=== PATIENT | male | born 1945 | race Caucasian/White ===

== ENCOUNTER 2020-10-16 10:28 | Emergency (ER) | payer MEDICARE, SELFPAY ==
--- NOTE | ~2020-10-16 | XR_ITS ---
XR hand RT min 3V 10/16/2020 11:24 Indication: Right hand pain Procedure: 3 views right hand Comparison: No prior studies for comparison. Findings: There is a comminuted intra-articular fracture of the fifth proximal phalanx involving the MCP joint. Mild soft tissue swelling. 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 Impression: 1: Mildly displaced, comminuted, intra-articular fracture base of the right fifth proximal phalanx. Reviewed, dictated and finalized at location A. Impression: 1: Mildly displaced, comminuted, intra-articular fracture base of the right fif th proximal phalanx.
--- NOTE | 2020-10-16 10:51 | ED.UPPEXIN ---
HPI - Extremity Injury (Upper) General Chief Complaint: Extremity Injury, Upper Stated Complaint: injured fingers Time Seen by Provider: 10/16/20 11:20 Source: patient and RN notes reviewed Mode of arrival: ambulatory Limitations: no limitations History of Present Illness HPI narrative: 74-year-old male presents with concern for injury to the fifth digit of his right hand. Reports 1 week ago while playing softball he was catching the ball and it jammed his finger. He reports for several days he wore a splint. He reports bruising, pain at the proximal digit. He denies decreased sensation, strength. Reports decreased range of motion. MD complaint: injury to: right and finger Related Data Home Medications Medication Instructions Recorded Confirmed multivitamin 1 tablet PO DAILY 02/22/19 10/16/20 omega-3 fatty acids 1,000 mg 1,000 mg PO DAILY 02/22/19 10/16/20 capsule insulin aspar prot-insulin aspart See Rx Instructions .ROUTE 05/18/20 10/16/20 100 unit/mL (70-30) subcutaneous .COMPLEX ml pen Allergies Allergy/AdvReac Type Severity Reaction Status Date / Time No Known Allergies Allergy Verified 10/16/20 10:50 Review of Systems Review of Systems: Narrative: CONSTITUTIONAL: Denies malaise, chills, sweats, or fever. SKIN: Denies lacerations, abrasions MUSCULOSKELETAL: Reports pain, swelling, bruising to the fifth digit of the right hand NEUROLOGIC: Denies numbness, weakness All systems reviewed & are unremarkable except as noted in HPI and below PMFSH Past Medical History Medical History (Updated 10/16/20 @ 12:56 by Mercy Wade NP) Cataract right 08/04/16, left 01/05/17 Essential (primary) hypertension Hernia 1985 History of rectal cancer Hypercalcemia Hyperlipidemia, unspecified Hypothyroidism, unspecified Type 2 diabetes mellitus Vitamin D deficiency Surgical History Surgical History History of abdominal surgery per pt, JUNJuly 2008 History of partial knee replacement Feb 2014 Family History Family History Mother Hypertension Cerebrovascular accident Father Cerebrovascular accident Social History Social History Second hand tobacco smoke exposure: No Alcohol intake: current Alcohol use details: on occasion Comments At time of signature, agree with nursing past medical, surgical, social and family history. There is no relevant family history pertinent to the presenting complaint Exam Narrative: Exam Narrative: GENERAL: Well-appearing, well-nourished, and in no acute distress. HEAD: Normocephalic EYES: PERRLA, conjunctivae clear NECK: Supple. CHEST: Speaks in full sentences. No respiratory distress. HEART: Regular rate and rhythm. Normal and equal peripheral pulses. EXTREMITIES: Fifth digit of the right hand has normal strength and sensation. Range of motion limited due to swelling and pain. Moderate proximal ecchymosis and edema noted. Proximal tenderness. Skin intact. Normal digital cascade with flexion of fingers, median, ulnar and radial nerve intact. Normal sensation of each side of finger. No scissoring. Normal thumb opposition. Good capillary refill and radial pulse. Distal capillary refill less than 3 seconds. SKIN: Warn, dry, intact, pink. No rash NEURO: Alert and oriented x3. PSYCH: Normal mood and affect Course Course Emergency Course: Patient is aware of diagnosis, understands and agrees to treatment plan. Anticipatory guidance given. Patient agrees to follow-up as directed and is aware of reasons to seek care at the emergency department. Portions of this record may have been created with voice recognition software Vital Signs Vital signs: Vital Signs Temperature 97.4 F L 10/16/20 10:53 Pulse Rate 85 10/16/20 10:53 Respiratory Rate 16 10/16/20 10:53 Blood Pressure
[2020-10-16 10:53] VITALS: BP 150/72; PULSE 85; RESP 16; TEMP 36.3; O2SAT 97
== END 2020-10-16 12:05 | disposition home or self-care (01) ==
PROVIDERS: Emergency Provider Nurse Practitioner; PCP Family Medicine
DX: S62.616A Displaced fracture of proximal phalanx of right little finger, initial encounter for closed fracture (principal); W21.07XA Struck by softball, initial encounter; Y93.64 Activity, baseball; I10 Essential (primary) hypertension; E78.5 Hyperlipidemia, unspecified; E03.9 Hypothyroidism, unspecified; E11.9 Type 2 diabetes mellitus without complications
CPT/HCPCS: 29130; 73130; 99214; G0463

== ENCOUNTER → 2020-11-01 10:00 | Outpatient (CLI) | payer MEDICARE, SELFPAY ==
--- NOTE | ~2020-11-01 | XR_ITS ---
XR hand RT min 3V DATE: 11/01/2020 10:16 INDICATION: Fracture of proximal phalanx of fifth digit TECHNIQUE: 3 views of right hand, additional lateral view of fifth finger COMPARISON: 10/16/2020 right hand FINDINGS: Comminuted intra-articular fracture of the base and shaft of the proximal phalanx of the fi fth digit is noted, without interval change in position or alignment since 10/16/2020. Fracture lines are still readily evident with minimal if any radiographic evidence of new bone formation. IMPRESSION: Comminuted intra-articular fracture of base and shaft of proximal phalanx of fifth digit with little interval change and minimal if any radiographically evident new bone formation Reviewed, dictated and finalized at [facility]. Reviewed, dictated and finalized at location A. IMPRESSION: Comminuted intra-articular fracture of base and shaft of proximal p halanx of fifth digit with little interval change and minimal if any radiograph ically evident new bone formation
== END ==
PROVIDERS: PCP Family Medicine; Visit Provider Plastic Surgery
DX: S62.616D Displaced fracture of proximal phalanx of right little finger, subsequent encounter for fracture with routine healing (principal); X58.XXXD Exposure to other specified factors, subsequent encounter
CPT/HCPCS: 73130

== ENCOUNTER → 2020-11-19 10:11 | Outpatient (CLI) | payer MEDICARE, SELFPAY ==
--- NOTE | ~2020-11-19 | XR_ITS ---
EXAMINATION: XR finger 5th RT min 2V INDICATION: Right fifth finger fracture follow-up TECHNIQUE: Four views of the left fifth finger are obtained. COMPARISON: 11/01/2020, 10/16/2020 FINDINGS: There is an unchanged comminuted intra-articular fracture at the proximal base of the fifth proximal phalanx. The distal fracture fragment is anteriorly displaced by up to 4 mm. There appears to be subtle calcified callus formation at the site. Surrounding soft tissue swelling persists. No ad ditional acute osseous findings are evident. IMPRESSION: 1. Essentially unchanged comminuted intra-articular fracture at the base of the fifth proximal phalan x. Minimal calcified callus formation. Reviewed, dictated and finalized at location A. IMPRESSION: 1. Essentially unchanged comminuted intra-articular fracture at the base of the fifth proximal phalanx. Minimal calcified callus formation.
== END ==
PROVIDERS: PCP Family Medicine; Visit Provider Plastic Surgery
DX: S62.616A Displaced fracture of proximal phalanx of right little finger, initial encounter for closed fracture (principal); X58.XXXA Exposure to other specified factors, initial encounter
CPT/HCPCS: 73140

== ENCOUNTER → 2020-11-29 09:13 | Outpatient (REF) | payer MEDICARE, SELFPAY | LOC: ANHLAB 09:13 | PROVIDERS: PCP Family Medicine; Visit Provider Nurse Practitioner | DX: L98.9 Disorder of the skin and subcutaneous tissue, unspecified (principal); D04.62 Carcinoma in situ of skin of left upper limb, including shoulder | CPT/HCPCS: 88305; 88342 ==

== ENCOUNTER → 2020-12-13 10:39 | Outpatient (REF) | payer MEDICARE, SELFPAY | LOC: ANHLAB 10:39 | PROVIDERS: PCP Family Medicine; Visit Provider Nurse Practitioner | DX: C44.629 Squamous cell carcinoma of skin of left upper limb, including shoulder (principal) | CPT/HCPCS: 88305; 88342 ==

== ENCOUNTER → 2020-12-17 10:16 | Outpatient (CLI) | payer MEDICARE, SELFPAY ==
--- NOTE | ~2020-12-17 | XR_ITS ---
XR finger 5th RT min 2V DATE: 12/17/2020 10:25 INDICATION: Follow-up fracture right fifth finger TECHNIQUE: 4 views COMPARISON: 11/19/2020 right fifth digit FINDINGS: There is no significant change in position or alignment of the comminuted intra-articular f racture of the base and proximal shaft of the proximal phalanx of the fifth digit since 11/19/2020. Ne w bone formation is identified, consistent with healing. IMPRESSION: Healing comminuted intra-articular fracture of the base and proximal shaft of the proxima l phalanx Reviewed, dictated and finalized at location B. IMPRESSION: Healing comminuted intra-articular fracture of the base and proxima l shaft of the proximal phalanx
== END ==
PROVIDERS: PCP Family Medicine; Visit Provider Plastic Surgery
DX: S62.616D Displaced fracture of proximal phalanx of right little finger, subsequent encounter for fracture with routine healing (principal); X58.XXXD Exposure to other specified factors, subsequent encounter
CPT/HCPCS: 73140

== ENCOUNTER 2022-12-09 08:00 | Outpatient (NON) | payer MEDICARE, SELFPAY | END 2022-12-09 08:01 | disposition home or self-care (01) | LOC: ANHLAB 12-12 13:10 | PROVIDERS: PCP Family Medicine; Visit Provider Nurse Practitioner | DX: D22.5 Melanocytic nevi of trunk (principal) | CPT/HCPCS: 88305 ==